=== PATIENT | female | born 1960 | race Caucasian/White ===

== ENCOUNTER 2022-05-25 02:53 | Inpatient (IN) | payer OTHER, SELFPAY ==
[2022-05-25] VITALS (10 sets, daily range): BP systolic 117–144; BP diastolic 68–90; PULSE 83–104; RESP 12–18; TEMP 36.4–37; O2SAT 94–98; BMI 35.6
--- NOTE | ~2022-05-25 | XR_ITS ---
EXAMINATION: XR CHEST CLINICAL INFORMATION: Nasogastric tube positioning. COMPARISON: Chest radiographs as detailed above. TECHNIQUE: Frontal view of the chest was obtained. FINDINGS: Support devices: Nasogastric tube with tip overlying the left upper quadrant and proximal gastric lumen. No significant abnormality is noted involving the heart, lungs, mediastinum, bony thorax or soft tissues. XR/XR chest 1V IMPRESSION: 1. Nasogastric tube appears in good position. 2. No acute cardiopulmonary process.
--- NOTE | ~2022-05-25 | CT_ITS ---
EXAMINATION: CT ABDOMEN AND PELVIS WITHOUT CONTRAST CLINICAL INFORMATION: Abdominal pain. Shortness of breath. COMPARISON: None TECHNIQUE: Multidetector volumetric imaging was performed from the superior aspect of the liver through the pubic symphysis. Sagittal and coronal reformatted images were obtained on the technologist's workstation. This CT examination was performed using dose optimization techniques as appropriate, variously including the following: *Automated exposure control *Adjustment of mA and/or kV according to patient size (this includes techniques or standardized protocols for targeted exams where dose is matched to indication/reason for exam; i.e. extremities or head) *Use of iterative reconstruction technique DLP: 636 mGy-cm FINDINGS: LUNG BASES: Clear. LIVER, GALLBLADDER, AND BILIARY TREE: A 1.8 cm diameter low density (9 Hounsfield unit) focus is present anteriorly within the right lobe of the liver and likely represents a benign, simple cyst requiring no additional imaging follow-up. Visualized. No biliary duct dilatation. PANCREAS: Unremarkable. SPLEEN: Unremarkable. ADRENAL GLANDS: Unremarkable. KIDNEYS AND URETERS: 1.8 cm diameter rounded low-density (-5 Hounsfield unit) focus within the interpolar segment of the right kidney consistent with a simple, benign renal cyst requiring no additional imaging follow-up. BLADDER: Unremarkable. GASTROINTESTINAL TRACT: Anastomotic sutures within the sigmoid colon. Moderate sigmoid diverticulosis. The appendix is not visualized. No pericecal inflammatory changes. Small bowel segments prominently within the left lower abdominal quadrant measure up to 4 cm in diameter. Fecal arise succus entericus is noted within a small bowel segment which partially herniates via a midline abdominal hernia (series 3 image 45). Findings are suspicious for small bowel obstruction related to the herniation. No free intraperitoneal fluid or gas collections noted. Moderate fluid distention of the stomach. ABDOMINAL WALL: A ventral midline incisional scar is noted. A left parasagittal herniation in the region of the incisional scar containing small bowel segments and may be a source of small bowel obstruction as noted above. Furthermore, nondilated small bowel segments are contained elsewhere within the herniation or a closely approximated secondary herniation with the herniation measuring approximately 7 cm in maximum lateral extent. Additionally, a right lower quadrant focal herniation containing omental fat is present (series 3 image 50). Soft tissue density measuring 3 cm in diameter with spiculated margins is present along the inferior margin of the midline incisional scar and may represent desmoplastic reaction. Small bowel anastomotic sutures are noted in the right lower abdominal quadrant. LYMPH NODES: Normal. VASCULAR: Mild scattered vascular calcifications. PELVIC VISCERA: Uterus is normal in appearance. No suspicious adnexal lesions. Curvilinear high density material is present in the right adnexal region. OSSEOUS STRUCTURES: Multilevel chronic spondylosis of the lumbar spine including degenerative grade 1 anterolisthesis L4-L5. CT/CT abdomen pelvis wo IV con IMPRESSION: *Acute small bowel obstruction. Dilated small bowel predominantly within the left lower quadrant is present. The obstruction may be secondary to small bowel herniating via a left parasagittal anterior abdominal wall hernia (series 3 image 46). Alternatively, the obstruction may be secondary to adhesions. Multiple intestinal anastomotic sutures are present. No free intraperitoneal gas or fluid collections. This critical result was discussed with Jim Hurst MD by telephone at 05/25/2022 5:56 AM and it was ascertained that the content and urgency of the report was understood at the time of direct communication.
--- OUTSIDE RECORDS SUMMARY | 2022-05-25 03:28 | XMS_ITS | Continuity of Care Document ---
:1960 Author Organization [facility] Address [address] [place] [address]- Care Team Providers Name Role Phone Not on Staff, PCP Primary Care Physician Unavailable En[place] [facility] [place] Date(s): 09/17/21 - 10/17/21 [facility] [address] [place] [address]- Attending Physician: Shanell Page Admitting Physician: AdmtrShanell Referring Physician: Admtr ArEdna Allergies, Adverse Reactions, Alerts Substance Reaction Severity Status sulfa drugs1 Active 1urticaria Medications metoprolol 50 mg oral tablet 50 mg, 1, tablet, By Mouth, 2 times a day, Refills 0, Maintenance, 12/13/18 16:37:41 EDT Start Date: 12/13/18 Status: OrderedNuLYTELY with Flavor Packs oral powder for reconstitution See Instructions, please follow instruction sheet, # 4,000 mL, 0 Refills, Maintenance, 10/09/20 10:29:00 EDT, [id number], Partial fill upon patient request if the prescription is for a scheduleII opioid drug., please follow instruction sheet,... Start Date: 10/09/20 Status: OrderedOmeprazole = 20 mg, By Mouth, Daily, 0 Refills, Maintenance, 12/13/18 16:37:21 EDT Start Date: 12/13/18 Status: Orderedondansetron 4 mg oral tablet 1 tablet = 4 mg, By Mouth, Every 8 hours, PRN Vomiting, # 12 tablet, 1 Refills, Maintenance, 05/12/20 19:45:00 EST, Tablet, [id number], Partial fill upon patient request, 156, cm, 12/26/19 8:33:00 EDT, Height, 90.6, kg, 01/11/19 11:54:00 EDT,... Start Date: 05/12/20 Status: Ordered Problem List Condition Effective Dates Status Health Status Informant Diverticulosis(Confirmed) Active GERD (gastroesophageal reflux Active disease)(Confirmed) Hypertension(Confirmed) Active IBS (irritable bowel Active syndrome)(Confirmed) Small bowel mass(Confirmed) Active Social History Social History Type Response Smoking Status Former smoker, quit more elizabeth n 30 days ago; Other: Quit about 30 yrs ago; entered on: 12/27/18 Sex
--- OUTSIDE RECORDS SUMMARY | 2022-05-25 03:28 | XMS_ITS ---
:1960 Author Care Team Providers Name Role Phone Prince Hearn Primary Care Provider Unavailable Allergies Code Code System Name Reaction Severity Status Onset NKDA ? Medications Name Status Start Date Stop Date ? ? amoxicillin 500 mg capsule Active ? Not a vailable Take 1 capsule every 8 hours by oral route for 7 days. codeine 10 mg-guaifenesin 100 mg/5 mL oral liquid Active ? Not available Take 10 mL every 4-6 hours by oral route as needed. omeprazole Active ? Not available Problems Name Status Onset Date Source ? Acute Sinusitis Active 05/16/2022 ? Cough Active 05/16/2022 ? Procedures None recorded. Results Lab Results None recorded. Past Encounters Encounter Date Diagnosis Provider 05/16/2022 Acute Sinusitis; Cough CHARLES HallC: [address] [place], [place] [phone], Ph. Social History Tobacco Smoking Status Never Smoker Vaccine List None recorded. Plan of Care Reminders Provider Appointments None recorded. ? ? Lab None recorded. ? ? Referral None recorded. ? ? Procedures None recorded. ? ? Surgeries None recorded. ? ? Imaging None recorded. ? ? Vitals Blood Pressure 147/92 mm[Hg]
--- OUTSIDE RECORDS SUMMARY | 2022-05-25 03:28 | XMS_ITS | Continuity of Care Document ---
:1960 Author Organization [facility] Address [address] [place] [address]- Care Team Providers Name Role Phone Su Love MD Primary Care Physician [place] [facility] [place] - 07/28/[address] [address]- [facility] Attending Physician: Su Love MD Admitting Physician: Su Love MD Referring Physician: Su Love MD Allergies, Adverse Reactions, Alerts Substance Reaction Severity Status sulfa drugs1 Active 1urticaria Medications metoprolol 50 mg oral tablet 50 mg, 1, tablet, By Mouth, 2 times a day, Refills 0, Maintenance, 12/13/18 16:37:41 EDT Start Date: 12/13/18 Status: OrderedOmeprazole = 20 mg, By Mouth, Daily, 0 Refills, Maintenance, 12/13/18 16:37:21 EDT Start Date: 12/13/18 Status: Ordered Problem List Condition Effective Dates Status Health Status Informant Diverticulosis(Confirmed) Active GERD (gastroesophageal reflux Active disease)(Confirmed) Hypertension(Confirmed) Active IBS (irritable bowel Active syndrome)(Confirmed) Small bowel mass(Confirmed) Active Social History Social History Type Response Smoking Status Former smoker, quit more elizabeth n 30 days ago; Other: Quit about 30 yrs ago; entered on: 12/27/18 Sex
--- OUTSIDE RECORDS SUMMARY | 2022-05-25 03:28 | XMS_ITS | Continuity of Care Document ---
:1960 Author Organization [facility] Address [address] [place] [address]- Care Team Providers Name Role Phone Not on Staff, PCP Primary Care Physician Unavailable En[place] [facility] [place](s): 04/16/21 - 05/16/21 [facility] [address] [place] [address]- Attending Physician: Shanell Page Admitting Physician: Shanell Page Referring Physician: Shanell Page Allergies, Adverse Reactions, Alerts Substance Reaction Severity [...]
--- OUTSIDE RECORDS SUMMARY | 2022-05-25 03:28 | XMS_ITS | Encounter Summary ---
:1960 Author Reason for Visit COVID-19 symptoms cough, congestion, sinus pressure x2 wee ks Assessment and Plan 1. Acute sinusitis ? sinusitis: care instructions ? amoxicillin 500 mg capsule ? sinusitis: care instructions 2. Cough ? cough: care instructions ? cough: care instructions ? codeine 10 mg-guaifenesin 100 mg/5 mL oral liquid Discussion Note This is a 61-year-old female who presen ts to the emergency department for evaluation of cough and sinus pain for several weeks, not improving on its own. Patient is afebrile. Vital signs are sta ble. Physical exam as above. She has moderate tenderness to frontal sinuses bilaterally. Her lungs are clear to auscultation bilaterally. Will give prescription for amoxicillin a s her symptoms are prolonged, not improving on their own. Patient also requesting cough medicine w ronda barbosaine. She has taken this in the past and has been helpful. Discussed that she should not drive or drink alcohol while taking this medication. Symptomatic care discussed. Reviewed patient?s medical history and c o-morbidities addressed. Plan of Care Reminders Provider Appointments None recorded. ? ? Lab None recorded. ? ? Referral None recorded. ? ? Procedures None recorded. ? ? Surgeries None recorded. ? ? Imaging None recorded. ? ? Medications Name Start Date ? ? amoxicillin 500 mg capsule ? Take 1 capsule every 8 hours by oral route for 7 days . codeine 10 mg-guaifenesin 100 mg/5 mL oral liquid ? Take 10 mL every 4-6 hours by oral route as needed. omeprazole ? Medications Administered None recorded. Vitals Blood Pressure 147/92 mm[Hg] Results Lab Results None recorded. Allergies Code Code System Name Reaction Severity Onset NKDA ? ? ? Problems Name Status Onset Date Source ? Acute Sinusitis Active 05/16/2022 ? Cough Active 05/16/2022 ? Procedures None recorded. Vaccine List None recorded. Social History Tobacco Smoking Status Never Smoker What was the date of your most recent tobacco screening? What is your level of alcohol consumption? None Do you or have you ever used any other forms of tobacco or n icotine? N Has tobacco cessation counseling been provided? N Do you use any illicit or recreational drugs? N Functional Status Unknown. Past Encounters Encounter Date Diagnosis Provider 05/16/2022 Acute Sinusitis; Cough CHARLES HallC: [address] [place], [place] [phone], Ph. History of Present Illness ? Upper Respiratory Symptoms Reported By: Patient Upper Respiratory Symptoms: Duration: ; Onset 2 weeks ago. Context: no sick contacts, no foreign travel. Associate d Symptoms: no shortness of breath, no wheezing, green s putum, fever, sore throat Notes: <div>sinus pain for 2 weeks< /div> ? COVID-19 Symptoms October 2019 Reported By: Patient Review of Systems: ROS as noted in the HPI Review of Systems ? Comprehensive Adult Problem ROS Reported By: Patient Constitutional: Constitutional: no fever, fa tigue Eyes: Eyes: no eye pain, no blurry vision ENMT: ENMT: no ear pain, no sore t hroat, sinus pressure, congestion Cardiovascular: Cardiovascular: no chest prosper n Respiratory: Respiratory: no wheezing, no chest tightness, no pain with respiration, cough Gastrointestinal: GI: no difficulty swallowing , no nausea, no vomiting, no diarrhea Musculoskeletal: Musculoskeletal: no soft tis mark swelling Skin: Skin: no pain Neurological symptoms: Neuro: no numbness, no weakn ess, no tingling, no burning, no shooting pain Allergic/Immunologic: Allergy/Immunologic: no runn y nose, sneezing Physical Exam ? COVID-19 Exam Reported By: Patient General Appearance: General Appearance normal ap pearance, no acute distress ENMT: Ears: canals clear, TM landm arks clear. Nose: nares patent, frontal sinus tenderness. Or al Cavity: moist mucous membranes, normal dentition. Pharynx: n o exudates, no tenderness, tonsils not enlarged, erythema Lymph Nodes: Lymph Nodes no LAD Lungs: Auscultation clear to auscul tation, no rales/crackles, no rhonchi, no wheezing Cardiovascular: Rate And Rhythm RRR
--- OUTSIDE RECORDS SUMMARY | 2022-05-25 03:28 | XMS_ITS | Continuity of Care Document ---
:1960 Author Organization [facility] Address [address] [place] [address]- Care Team Providers Name Role Phone Su Love MD Primary Care Physician Encounter [facility] [place] Date(s): 12/26/19 - 01/25/20 [facility] [address] [place] [address]- [facility] Attending Physician: Shanell Page Admitting Physician: Shanell [...]
--- OUTSIDE RECORDS SUMMARY | 2022-05-25 03:29 | XMS_ITS | Continuity of Care Document ---
:1960 Author Organization [facility] Address [address] [place] [address]- Care Team Providers Name Role Phone Not on Staff, PCP Primary Care Physician Unavailable Encounter [facility] Date(s): 12/22/20 - 01/21/21 [facility] [address] [place] [address] Allergies, Adverse Reactions, Alerts Substance Reaction Severity [...]
--- OUTSIDE RECORDS SUMMARY | 2022-05-25 03:29 | XMS_ITS | Continuity of Care Document ---
:1960 Author Organization [facility] Address [address] [place] [address]- Care Team Providers Name Role Phone Ivan GALE, Su Jean Primary Care Physician Encounter [facility] [place] Date(s): 02/10/20 - 03/11/20 [facility] [address] [place] [address]- [facility] Allergies, Adverse Reactions, Alerts Substance Reaction Severity [...]
--- OUTSIDE RECORDS SUMMARY | 2022-05-25 03:29 | XMS_ITS | Continuity of Care Document ---
:1960 Author Organization [facility] Address [address] [place] [address]- Care Team Providers Name Role Phone Not on Staff, PCP Primary Care Physician Unavailable Encounter [facility] [place] Date(s): 01/05/21 - 02/04/21 [facility] [address] [place] [address]- [place] Allergies, Adverse Reactions, Alerts Substance Reaction Severity [...]
--- OUTSIDE RECORDS SUMMARY | 2022-05-25 03:29 | XMS_ITS ---
:1960 Author Organization [facility] Address [address] [place] [address] Care Team Providers Name Role Phone Ean Smith Unavailable Unavailable PROBLEMS Type Condition ICD9-CM [id number] Onset Condition SNOMED Cod e Code Code Dates Status Problem Gastroesophageal K21.9 Active 266 353404 reflux disease without esophagitis Problem Constipation, K59.00 Active 572210 08 unspecified constipation type ALLERGIES No Known Allergies ENCOUNTERS Encounter Location Date Diagnosis [address] Feb, [facility] [address] [place] [address] Feb, Constipa tion, unspecified [facility] [address] [place], [place] constipati on type K59.00 and [phone] Gastroesophageal reflux disease without esophagitis K21.9 [facility] [place] Outpatient [address] [facility] Mar, ALEX Jarquin [phone] [facility] [place] ER [address] [facility] October, ALEX Jarquin [phone] IMMUNIZATIONS Vaccine Route Administration Date Status Influenza Unknown Mar 03, 2021 Administered SOCIAL HISTORY Qualifiers Date Never Smoker REASON FOR REFERRAL FUNCTIONAL STATUS PLAN OF CARE Activity Details Follow Up prn Reason: VITAL SIGNS Weight 203 lbs 2021-03-03 Height 61 in 2021-03-03 BMI 38.35 kg/m2 2021-03-03 Temperature 98.6 degrees Fahrenheit 2021-03-03 Blood pressure systolic 000 mm Hg 2021-03-03 Blood pressure diastolic 00 mm Hg 2021-03-03 MEDICATIONS Medication Instructions Dosage Frequency Start End Duration Statu s Date Date Hyoscyamine Orally every 4 1 tablet as 4h A ctive Sulfate 0.125 hrs needed MG Metoprolol Orally Once a 1 tablet 24h 30 day(s) Acti ve Succinate ER 50 day MG Losartan Orally Once a 1 tablet 24h 30 day(s) Active Potassium 25 MG day Omeprazole 20 Orally Once a 1 capsule 24h Ac tive MG day 30 minutes before morning meal Metoprolol Orally Once a 1 capsule 24h 30 day(s) Act dave Succinate 25 MG day PROCEDURES Procedure Date Ordered Result Body Site PATIENT NOT ELIG D/T ACTIVE DX HTN Mar 03, 2021 TOBACCO NON-USER Mar 03, 2021 DOC MEDS VERIFIED W/PT OR RE Mar 03, 2021 COLORECTAL CA SCREEN DOC REV Mar 03, 2021 RESULTS No Results REASON FOR VISIT colon recall, Patient presents today for constipation Insurance Providers [facility] Health Member Patient Patient Patient Patient Patient Subscriber Subscriber Subscriber Group Insurance Plan Plan Plan Plan ID Relationship Address Phone Name Date of ID Name Date of No Type Insurance Insurance Insurance Coverage to Subscriber Address Phone Name Dates [employer] [phone] [employer] [facility] [id number] [facility] [id number] [id number]
--- OUTSIDE RECORDS SUMMARY | 2022-05-25 03:29 | XMS_ITS | Continuity of Care Document ---
:1960 Author Organization [facility] Address [address] [place] [address]- Care Team Providers Name Role Phone Su Love MD Primary Care Physician Encounter [id number] Date(s): 08/03/19 - 01/29/20 [facility] [address] [place] [address] [facility] Attending Physician: Johnna Boo MD Admitting Physician: Johnna Boo MD Referring Physician: Su Love MD Allergies, [...]
--- OUTSIDE RECORDS SUMMARY | 2022-05-25 03:29 | XMS_ITS | Continuity of Care Document ---
:1960 Author Organization [facility] Address [address], [address] [place] [address]- Care Team Providers Name Role Phone Su Love MD Primary Care Physician Encounter 07/26/19 - 08/02/19 [facility] [address], [address] [place] [address]- [facility] Attending Physician: Su Love MD Admitting [...]
--- OUTSIDE RECORDS SUMMARY | 2022-05-25 03:29 | XMS_ITS | Continuity of Care Document ---
:1960 Author Organization [facility] Address [address] [place] [address]- Care Team Providers Name Role Phone Not on Staff, PCP Primary Care Physician Unavailable Encounter [facility] [place] Date(s): 10/09/20 - 01/21/[address] [address] Attending Physician: Ema GALE, Johnna Admitting Physician: Ema GALE, Johnna Allergies, Adverse Reactions, Alerts Substance Reaction Severity [...]
--- OUTSIDE RECORDS SUMMARY | 2022-05-25 03:29 | XMS_ITS | Continuity of Care Document ---
:1960 Author Organization [facility] Address [address] [place] [address]- Care Team Providers Name Role Phone Not on Staff, PCP Primary Care Physician Unavailable Encounter [facility] Date(s): 09/11/21 - 10/17/21 [facility] [address] [place] [address]- Attending Physician: Hood Roberts MD Admitting Physician: Hood Roberts MD Referring Physician: Not on Staff, Referring MD Allergies, Adverse Reactions, Alerts Substance Reaction [...]
--- OUTSIDE RECORDS SUMMARY | 2022-05-25 03:29 | XMS_ITS | Continuity of Care Document ---
:1960 Author Organization [facility] Address [address] [place] [address]- Care Team Providers Name Role Phone Malinda Chatman MD Primary Care Physician [place] [facility] [place] - 01/04/[address] [address]- Discharge Disposition: A-D/C Walkout Attending Physician: Rodrick Christian MD Admitting Physician: Rodrick Christian MD Referring Physician: Not on Staff, Referring [...] bowel Active syndrome)(Confirmed) Small bowel mass(Confirmed) Active Vital Signs Most recent to oldest [Reference Range]: 1 2 Height 155 cm (01/04/21 5:30 PM) Weight 93.4 kg (01/04/21 5:30 PM) Oxygen Saturation [94-100 %] 100 % 99 % (01/04/21 5:30 PM) (01/04/21 5:17 PM) Pulse Rate [55-90 bpm] 99 bpm 115 bpm *H* *H* (01/04/21 5:30 PM) (01/04/21 5:17 PM) Body Mass Index [18.5-24.99] 38.88 *>HHI* (01/04/21 5:30 PM) Blood Pressure [90-138/55-84 mm Hg] 142/92 mm Hg *H* (01/04/21 5:30 PM) Respiratory Rate [16-30 br/min] 19 br/min 18 br/mi n (01/04/21 5:30 PM) (01/04/21 5:17 PM) Temperature [96.8-100.4 DegF] 98.5 DegF (01/04/21 5:30 PM) Mode of Delivery (Oxygen) Room air Room air (01/04/21 5:30 PM) (01/04/21 5:17 PM) Blood pressure sites Arm, right (01/04/21 5:30 PM) Temperature Route Oral (01/04/21 5:30 PM) Dry Weight 93.4 kg (01/04/21 5:30 PM) Weight Obtained Via Standing scale (01/04/21 5:30 PM) Dry Weight Obtained Via Standing scale (01/04/21 5:30 PM) Social History Social History Type Response Smoking Status Former smoker, quit more elizabeth n 30 days ago; Other: Quit about 30 yrs ago; entered on: 12/27/18 Sex
--- OUTSIDE RECORDS SUMMARY | 2022-05-25 03:29 | XMS_ITS | Continuity of Care Document ---
:1960 Author Organization [facility] Address [address] [place] [address]- Care Team Providers Name Role Phone Ivan GALE, Su Jean Primary Care Physician Encounter [facility] [place] Date(s): 12/27/19 - 01/26/20 [facility] [address] [place] [address]- [facility] Attending Physician: Shanell Page Admitting Physician: [...]
--- OUTSIDE RECORDS SUMMARY | 2022-05-25 03:29 | XMS_ITS | Continuity of Care Document ---
:1960 Author Organization [facility] Address [address] [place] [address]- Care Team Providers Name Role Phone Compa GALE, Malinda Leos Primary Care Physician Encounter [facility] [place] Date(s): 12/09/20 - 01/08/21 [facility] [address] [place] [address] Allergies, Adverse Reactions, Alerts Substance [...]
--- OUTSIDE RECORDS SUMMARY | 2022-05-25 03:29 | XMS_ITS | Continuity of Care Document ---
:1960 Author Organization [facility] Address [address] [place] [address]- Care Team Providers Name Role Phone Su Love MD Primary Care Physician Encounter [facility] [place] Date(s): 12/27/19 - 01/03/20 [facility] [address] [place] [address]- [facility] Encounter Diagnosis Sinus congestion (Discharge Diagnosis) - 12/27/19 Exposure to COVID-19 virus (Discharge Diagnosis) - 12/27/19 Attending Physician: Rubén Luong MD Referring Physician: Su Love MD Allergies, [...] bowel Active syndrome)(Confirmed) Small bowel mass(Confirmed) Active Diagnosis Diagnosis Type Effective Dates Health Clinical Infor mant Status Service Sinus congestion Discharge 12/27/19 Diagnosis Exposure to Discharge 12/27/19 COVID-19 virus Diagnosis Social History Social History Type Response Smoking Status Former smoker, quit more elizabeth n 30 days ago; Other: Quit about 30 yrs ago; entered on: 12/27/18 Sex
--- OUTSIDE RECORDS SUMMARY | 2022-05-25 03:29 | XMS_ITS | Continuity of Care Document ---
:1960 Author Organization [facility] Address [address] [place] [address]- Care Team Providers Name Role Phone Ivan GALE, Su Jean Primary Care Physician En[place] [facility] [place](s): 07/29/19 - 07/29/[address] [address]- [facility] Attending Physician: Natasha Eastman NP Allergies, Adverse Reactions, Alerts Substance Reaction Severity [...]
--- OUTSIDE RECORDS SUMMARY | 2022-05-25 03:29 | XMS_ITS | Continuity of Care Document ---
:1960 Author Organization [facility] Address [address] [place], [place] [address]- Care Team Providers Name Role Phone Not on Staff, PCP Primary Care Physician Unavailable Encounter [facility] [place] Date(s): 01/16/21 - 05/16/21 [facility] [address] [place], [place] [address]- Attending Physician: Johnna Boo MD Admitting Physician: Johnna Boo MD Referring Physician: Not on Staff, Referring [...]
--- NOTE | 2022-05-25 03:47 | PC.NURSE ---
Pt's V/S are stable, pt is experiencing abd pain on her RUQ 8/10. Pt has been having N/V and vomiting bile. Pt has hx of ileostomy and bowel obstruction and she says she feels the same s/s. Pt has hypoactive bowel sound throughout her upper and lower quadrants. Pt is afibrile, no other s/s reported.
--- NOTE | 2022-05-25 04:11 | ECG_ITS ---
Test Reason : ABD PAIN Blood Pressure : / mmHG Vent. Rate : 092 BPM Atrial Rate : 092 BPM P-R Int : 132 ms QRS Dur : 086 ms QT Int : 354 ms P-R-T Axes : 052 025 042 degrees QTc Int : 437 ms Normal sinus rhythm Normal ECG When compared with ECG of 30-APR-2008 15:11, No significant change was found Referred By: Jim Hurst Electronically Signed By:ELLE BUTCHER MD
[2022-05-25 04:30] LABS: MANUAL DIFF FLAG NO
[2022-05-25 04:33] LABS: Basophils Percent Auto 0.2 % (0-2); Eosinophils Percent Auto 0.3 % (0-4); Hematocrit 42.6 % (37.0-47.0); Hemoglobin 14.5 g/dl (12.0-16.0); Imm Gran Abs Auto 0.03 X10*3/uL (0.00-0.03); Imm Gran Pct Auto 0.3 % (0.0-0.4); Lymphocytes Absolute Auto 1.1 X10*3/uL (1.2-4.9); Lymphocytes Percent Auto 10.8 % (20-40); Mean Corpuscular Hemoglobin 28.9 pg (27.0-33.0); Mean Corpuscular Volume 84.9 fL (80.0-98.0); Monocytes Absolute Auto 0.6 X10*3/uL (0.1-1.2); Monocytes Percent Auto 5.8 % (2-11); Neutrophils Absolute Auto 8.4 x10*3/uL (2.0-8.3); Neutrophils Percent Auto 82.6 % (45-73); Platelet Count 359 X10*3/uL (160-400); Red Blood Count 5.02 X10*6/uL (4.20-5.50); Red Cell Distribution Width 13.6 % (11.0-16.0); White Blood Count 10.2 X10*3/uL (4.8-10.8)
[2022-05-25] MEDS: Morphine Sulfate 2 MG/ML CARTRIDGE 1 MG IVPUSH ×3 (04:35→17:59)
[2022-05-25] MEDS: 0.9 % Sodium Chloride 1,000 ML 999 ML IV (04:36)
[2022-05-25] MEDS: ondansetron HCL 4 MG/2 ML VIAL IVPUSH ×2 (04:36→10:11)
[2022-05-25] MEDS: Famotidine/PF 20 MG/2 ML VIAL IVPUSH (04:36)
[2022-05-25 04:53] LABS: Alanine Aminotransferase 62 U/L (0-31); Albumin Level 4.1 g/dL (3.5-5.0); Alkaline Phosphatase 95 U/L (39-117); Anion Gap 16 (12-20); Aspartate Amino Transferase 22 U/L (5-31); Bilirubin Direct 0.2 mg/dL (0.0-0.5); Blood Urea Nitrogen 13 mg/dL (9-16); Carbon Dioxide 26 mmol/L (22-29); Chloride 103 mmol/L (96-108); Creatinine Clr Calc Pharmacy 75.3; Estimated Glomerular Filt Rate > 60; Glucose Random 135 mg/dL (60-115); Lipase 24 U/L (8-78); Potassium 4.6 mmol/L (3.3-5.1); Sodium 140 mmol/L (135-145); Total Protein 7.1 g/dL (6.5-8.0)
[2022-05-25 04:59] LABS: Troponin-I High Sensitivity < 3.5 ng/L (<3.5-17.0)
--- NOTE | 2022-05-25 06:39 | PC.NURSE ---
Call out to Dr.Jennifer Carmen Art from [facility] [phone] @[phone]
--- NOTE | 2022-05-25 06:50 | PC.NURSE ---
Call out to [facility] @[phone]
--- NOTE | 2022-05-25 07:14 | ED_ITS ---
HPI - Abdominal Pain General Chief Complaint: Abdominal Pain Stated Complaint: Abd pain/Vomiting blood Time Seen by Provider: 05/25/22 03:47 Source: patient and family (Daughter) Mode of arrival: ambulatory Limitations: no limitations History of Present Illness HPI narrative: 61-year-old female presented for evaluation of abdominal pain. Abdominal pain started since yesterday after eating lunch pain is localized to the left abdominal area described as constant severe 10/10 crampy pain, pain was aggravated by food nothing relieved the pain, associated with nausea, patient had a normal bowel movement this morning and passing gas. Patient had a history of small-bowel obstruction in the past and multiple abdominal surgery with adhesion require multiple surgery for Luna section at [facility]. No chest pain, no fever, no chills. Related Data Allergies Allergy/AdvReac Type Severity Reaction Status Date / Time Sulfa (Sulfonamide Allergy Unknown HIVES Verified 05/25/22 03:10 Antibiotics) [SULFA (SULFONAMIDE ANTIBIOTICS)] Septra Allergy Unknown Hives Uncoded 05/25/22 03:10 Sulfa Allergy Unknown Hives Uncoded 05/25/22 03:10 Review of Systems Review of Systems All other systems are reviewed and are negative Constitutional: Reports as per HPI and Reports no additional constitutional complaints Eyes: Reports as per HPI and Reports no additional eye complaints Reports system reviewed and no additional complaints, except as documented Cardiovascular: Reports as per HPI and Reports no additional cardiovascular complaints Respiratory: Reports as per HPI and Reports no additional respiratory complaints Gastrointestinal: Reports as per HPI and Reports no additional gastrointestinal complaints Genitourinary: Reports no additional female genitourinary complaints Musculoskeletal: Reports no additional musculoskeletal complaints Skin/Breast: Reports system reviewed and no additional complaints, except as docu Psychiatric: Reports no additional psychiatric complaints Endocrine: Reports no additional endocrine complaints Hematologic/Lymphatic: Reports no additional hematologic/lymphatic complaints Allergic/Immunologic: Reports no additional allergic/immunologic complaints Reports system reviewed and no additional complaints, except as documented and Reports Abnormal speech present [facility] Past Medical History Medical History Hypertension Irritable bowel Social History Social History Alcohol intake: current Alcohol intake frequency: a few times a week Alcohol type: wine Smoked in Last 30 Days: No Use of substances other than those prescribed or required for medical reasons: No Advance Directives: No Advance Directives Information Provided: No Patient : No Physical Exam ED Vital Signs: Vital Signs - 24 hr 05/25/22 03:05 05/25/22 03:36 05/25/22 04:35 Temperature 97.6 F 98.6 F Pulse Rate 96 99 Respiratory Rate 18 18 16 Blood Pressure 117/90 H 144/85 H Pulse Oximetry 98 98 Oxygen Delivery Method Room Air Room Air 05/25/22 07:06 Temperature 98.4 F Pulse Rate 96 Respiratory Rate 12 Blood Pressure 136/81 Pulse Oximetry 96 Oxygen Delivery Method Room Air BMI result Body Mass Index 35.6 Vital signs have been reviewed as appeared to be correct. Blood pressure normal. Heart rate normal. Respiration rate normal. Temperature normal. Oxygen saturation normal. Appearance: Alert. Oriented X3. No acute distress. Head: Normal external exam. Normocephalic. Atraumatic. No Burnette signs noted. No raccoon eyes noted Eyes: PERRLA. EOMI. Conjunctiva and sclera normal. Eyelids normal. ENT: TM's Normal. Pharynx normal. Uvula midline. Moist mucous membranes. No trismus noted. No drooling noted. No muffled voice noted. Neck: Normal inspection. Neck supple. FROM. No adenopathy. Thyroid Normal. No meningeal signs. No neck mass noted. CVS: Normal heart rate and rhythm. Heart sound normal. No murmurs noted. Pulses normal throughout. Respiratory: No respiratory distress. Painless inspiration. Breath sounds normal. No wheezes/rales/rhonchi noted. Chest nontender. No accessory muscle usage noted or decreased air movement noted. Abdomen: Soft, left abdominal tenderness no rebound tenderness, no guarding. Bowel sounds normal in all 4 quadrants. No distention noted. No organomegaly noted. No visible injury noted. Back: No CVA tenderness. Full range of motion noted. Skin: Skin warm and dry. Normal skin color. Normal skin turgor. No rashes/lesions/lacerations noted. Extremities: No lower extremity edema. Extremities exhibit normal range of motion. Extremities nontender. Neuro: Oriented X 3. Cranial nerve exam: II-XII are grossly intact No motor deficit. No sensory deficit. Reflexes normal. Course Course Course Narrative: 61-year-old female with multiple abdominal surgery and frequent small bowel obstruction at [facility] by Dr. Art (surgeon) I discussed the case with as per patient's request patient was not accepted to the hospital because the hospital was closed for transfer, then the case was discussed with Dr. Reynolds who will evaluate the patient in the morning. Will insert NG tube/IV hydration/pain medication as needed. Medical Decision Making Medical Decision Making Differential Diagnoses: Differential diagnosis Differential Diagnosis: The differential diagnosis associated with the patient?s presentation includes: Small-bowel obstruction/gastritis/strangulated hernia causing obstruction. Consideration of admission/observation: Consideration of Admission/Observation Escalation of care admission/observation considered: Escalation of care including admission/observation considered Discussion of management with other physician/healthcare provider/other source (e.g., hospitalist, program consultant, behavioral health): Discussion w/other physician/healthcare provider ( Gail) Management of the patient was discussed with: Child Development Assistant (Surgeon) My interpretation is Lab Attestation: I reviewed the patient's lab results. Discussion of test interpretation with radiology: Discussion of test interpretation with radiology Discussed with radiology regarding test interpretation. Medications Administered Discontinued Medications Generic Name Dose Route Start Last Admin Trade Name Freq PRN Reason Stop Dose Admin Famotidine 20 mg 05/25/22 04:24 05/25/22 04:36 Famotidine/Pf 20 Mg/2 Ml Vial IVPUSH 05/25/22 04:25 20 mg ONCE ONE Administration Sodium Chloride 1,000 mls @ 999 mls/hr 05/25/22 04:09 05/25/22 04:36 Ns IV 05/25/22 05:09 999 mls/hr .Q1H1M ONE Administration Morphine Sulfate 1 mg 05/25/22 04:23 05/25/22 04:35 Morphine Sulfate 2 Mg/Ml Cartridge IVPUSH 05/25/22 04:24 1 mg ONCE ONE Administration Protocol Ondansetron HCl 4 mg 05/25/22 04:23 05/25/22 04:36 Ondansetron Hcl 4 Mg/2 Ml Vial IVPUSH 05/25/22 04:24 4 mg ONCE ONE Administration Discharge Plan Discharge Clinical Impression: Small bowel obstruction Patient Disposition: Admitted As Inpatient
[2022-05-25 07:25] LABS: Appearance Urine Cloudy; Color Urine Dark Yellow; Glucose Urine UA Negative (Negative); Leukocyte Esterase Urine Negative (Negative); Nitrite Urine Negative (Negative); PH >= 9.0 (5.0-9.0); Specific Gravity - Urine 1.025 (1.005-1.025); UMIC TRIGGER UACC YES; Urine Blood Negative (Negative); Urine Ketones 15 mg/dL (Negative); Urine Protein 30 (1+) mg/dL (Neg-Trace)
[2022-05-25 07:27] LABS: Bacteria Urine None Seen (None Seen); Hyaline Casts Urine 0-2 /LPF (0-2); RBC Urine 0-2 /HPF (0-2); Squamous Epithelial Cell Urine 0-2 /HPF (0-2); WBC Urine 0-5 /HPF (0-5)
--- NOTE | 2022-05-25 08:00 | PC.NURSE ---
patient a/ox4 . perrlla . heart rate regular at 100 beats per min . breathing even and unlabored . lungs clear throughout . skin pink warm and dry . abdomen soft , tender to touch rebound tenderness noted on left side . patient reports pasing gas and having loose bowel movements . bowel sounds noted only on right side of abdomen . patient aware of plan of care .
[2022-05-25 08:23] LABS: Lactic Acid 0.8 mmol/L (0.5-2.0)
--- NOTE | 2022-05-25 08:25 | PM.CNGS ---
History of Present Illness Consult details Consult date: 05/25/22 Reason for consult: abdominal pain Narrative: The patient is a 61-year-old woman who is accompanied by her daughter. She is stated that her daughter is her caregiver and requested she be present with to help facilitate today's interview since the patient has a rather complex medical history. Patient notes that she has a history of carcinoid involving her small bowel mesentery and small bowel that she believes was operated on in [place]. She also notes that at another hospital, last year she underwent a colonoscopy and had a sigmoid perforation that required operative repair and a diverting ileostomy that was reversed in closed earlier this year. She notes that she has been told she has an incisional hernia and that they are following at and that no formal plan is in place regard in its repair. She and her daughter confirmed that yesterday she started to developed crampy abdominal pain associated with vomiting and left upper quadrant pain. She was evaluated in the emergency department and CT demonstrate the hernia with a possible transition point in the hernia. The patient denies any pain at her hernia and reports that she is passing gas and had a normal bowel movement yesterday. She continues to endorse left upper quadrant pain that is severe enough that she does not feel that she can be sent home. Review of Systems Review of Systems: Yes all other systems are reviewed and are negative Constitutional: Constitutional: Reports as per [facility] Past Medical History Medical History Hypertension Irritable bowel Social History Social History Alcohol intake: current Alcohol intake frequency: a few times a week Alcohol type: wine Smoked in Last 30 Days: No Use of substances other than those prescribed or required for medical reasons: No Advance Directives: No Advance Directives Information Provided: No Patient : No Meds Allergies Allergy/AdvReac Type Severity Reaction Status Date / Time Sulfa (Sulfonamide Allergy Unknown HIVES Verified 05/25/22 03:10 Antibiotics) [SULFA (SULFONAMIDE ANTIBIOTICS)] Active Medications: Current Medications Pharmacy Consult (Consult Rx Perform Med Rec) 1 each MISCELLANE ONCE PRN PRN Reason: Consult order Home Medications Medication Instructions Recorded Confirmed Last Taken Type albuterol sulfate 90 mcg/actuation 1 puff inhalation QID PRN Wheezing 05/25/22 05/25/22 Unknown History aerosol inhaler metoprolol succinate 25 mg 1 tab PO DAILY 05/25/22 05/25/22 Unknown History tablet,extended release 24 hr metoprolol succinate 50 mg 1 tab PO DAILY 05/25/22 05/25/22 Unknown History tablet,extended release 24 hr omeprazole 20 mg capsule,delayed 1 cap PO DAILY 05/25/22 05/25/22 Unknown History release Physical Exam Vital Signs: Vital Signs: Last Vital Signs Temp 98.4 F 05/25/22 07:06 Pulse 96 05/25/22 07:06 Resp 12 05/25/22 07:06 BP 136/81 05/25/22 07:06 Pulse Ox 96 05/25/22 07:06 O2 Del Method 05/25/22 07:06 BMI result Body Mass Index 35.6 The patient is non-toxic & in good spirits NC/AT, PERRLA, EOMI Mood, affect & judgment all appear appropriate Sclera anicteric conjunctiva pink and moist Oropharynx is clear with no aphthous ulcers, Mallampati class 4, mucous membranes moist Neck is supple with no masses, adenopathy or bruits Heart is regular, normal S1-S2 no rubs or murmurs Lungs are clear and equal anteriorly with no audible wheezing, rubs or dullness to percussion Abdomen is overweight with no demonstrable hernias. No HSM, rebound, rigidity, guarding, masses or bruits are present. Rectal exam is deferred Skin has good turgor and is free of rashes Extremities free of cyanosis clubbing edema Results Labs Result diagrams: 05/25/22 04:26 05/25/22 04:26 Labs: Abnormal lab results 05/25/22 05/25/22 05/25/22 Range/Units 04:26 04:26 07:19 MPV 9.0 L (9.4-12.3) fL Neut % (Auto) 82.6 H (45-73) % Lymph % (Auto) 10.8 L (20-40) % Lymph # (Auto) 1.1 L (1.2-4.9) X10*3/uL Absolute Neuts (auto) 8.4 H (2.0-8.3) x10*3/uL Random Glucose 135 H (60-115) mg/dL ALT 62 H (0-31) U/L Urine Protein 30 (1+) H (Neg-Trace) mg/dL Short CBC 05/25/22 Range/Units 04:26 WBC 10.2 (4.8-10.8) X10*3/uL Hgb 14.5 (12.0-16.0) g/dl Hct 42.6 (37.0-47.0) % Plt Count 359 (160-400) X10*3/uL BMP 05/25/22 04:26 Sodium 140 Potassium 4.6 Chloride 103 Carbon Dioxide 26 BUN 13 Creatinine 0.76 Calcium 10.0 Liver Function 05/25/22 Range/Units 04:26 Total Bilirubin 1.0 (0.0-1.0) mg/dL Direct Bilirubin 0.2 (0.0-0.5) mg/dL AST 22 (5-31) U/L ALT 62 H (0-31) U/L Alkaline Phosphatase 95 (39-117) U/L Albumin 4.1 (3.5-5.0) g/dL Urine 05/25/22 Range/Units 07:19 Urine Color Dark Yellow Urine Appearance Cloudy Urine pH >= 9.0 (5.0-9.0) Ur Specific [place] 1.025 (1.005-1.025) Urine Protein 30 (1+) H (Neg-Trace) mg/dL Urine Glucose (UA) Negative (Negative) mg/dL All other labs normal. Lactic acid is normal at 0.[address] scan report/results: report reviewed and image reviewed CT scan - pelvis: report reviewed and image reviewed Assessment and Plan (1) Partial small bowel obstruction: Status: Acute (2) H/O malignant carcinoid tumor of small intestine: Status: Acute (3) Morbid (severe) obesity due to excess calories: Status: Acute (4) History of closure of ileostomy: Status: Acute Plan While awaiting the lactic acid, I re-examined the patient and her incisional hernia continues to reduce but she does report it is tender. More importantly, the patient reports an interval bowel movement and is continuing to pass gas. The patient has agreed to a nasogastric tube according to the ER staff in an attempt to try to avoid an operation. Given the ongoing flatus and bowel movement, I suspect the patient will not require surgery, but I will continue to follow. Please call me with surgical questions. Trend labs, NPO with IV fluid and call me with questions Procedures Date of Service Date of Service: 05/25/22
--- NOTE | 2022-05-25 08:42 | PHA.MEDREC ---
Pharmacy Consult ? Medication Reconciliation Pharmacy has completed the medication reconciliation.
[2022-05-25] MEDS: Midazolam HCl/PF 2 MG/2 ML VIAL IVPUSH (08:48)
[2022-05-25] MEDS: Lidocaine HCl 4 % MPF w/MADgic 5 ML AMPUL 1 APPL TOPICAL (08:52)
[2022-05-25 08:58] LABS: Influenza A PCR NEGATIVE (Negative); Influenza B PCR NEGATIVE (Negative); Resp Syncy Virus RNA Qual PCR NEGATIVE (Negative); SARS COV2 PCR INHOUSE NEGATIVE (Negative)
--- NOTE | 2022-05-25 09:00 | PC.NURSE ---
adminestered 2mg versed as ordered by provider for anxiety related to procedure . patient placed on youth nutritional monitor . patient aware of plan of care .
[2022-05-25] MEDS: Lidocaine HCl 4 % MPF 5 ML AMPUL 3 ML INHALE (09:19)
--- NOTE | 2022-05-25 09:30 | PC.NURSE ---
R.T at bedside administering lidocaine nebulizer treatment prior to ng-tube placement . family and patient aware of plan of care .
--- NOTE | 2022-05-25 10:11 | PC.NURSE ---
N-G placed in right nare , place on intermittent wall suctioning . large amount of green bile immediately removed after placement 400 ml .placement verified with xray . patient reports nausea , obtained order for zofran from provider DR. Reed and administered IVP . patient aware of plan of care .
--- NOTE | 2022-05-25 10:42 | P.HPHOSP_ITS ---
History of Present Illness Date of Service: 05/25/22 Attending physician on admission: Jarocho Ram Chief Complaint: Left-sided abdominal pain Pt is a 61-year-old female with a PMH significant for prior SB0, illeus, cholecystectomy, multiple other abdominal surgeries including resection and illeostomy, and HTN who presents to the ED complaining of left-sided abdominal pain x1 day. Pt noted that she had pain yesterday after eating, which progressively worsened throughout the night. She then developed nausea and vomiting. Pt took herself to [facility] ED, but left for [facility] after not being seen for five hours. Pt had a normal small bowel movement this morning and has continued to pass gas. Pt denies F/C. No chest pain/pressure or SOB. In the ED pt treated with morphine, Zofran, Pepcid. CT showed acute SBO of the left lower quadrant possibly secondary to herniation or adhesions. General surgery consulted and thought SBO due to herniation unlikely, suggesting conservative treatment at this time. Pt initially refused NGT due to prior traumatic experiences with placement. Pt given midazolam and NGT finally placed and in good position, producing copious bilious output. Pt will be admitted to the hospital for SBO management. Review of Systems Review of Systems: Left-sided abdominal pain, severe and crampy N/V Denies F/C Yes all other systems are reviewed and are negative [facility] Medical History History of ileus Hypertension Irritable bowel Family History (Updated 05/25/22 @ 11:04 by LAZARO Bishop) Mother HTN (hypertension) SBO (small bowel obstruction) CHF (congestive heart failure) Surgical History H/O ileostomy History of cholecystectomy Social History (Updated 05/25/22 @ 11:04 by LAZARO Bishop) Alcohol intake: current Alcohol intake frequency: a few times a week Alcohol type: wine Patient Tobacco Use Status: Former Tobacco user Smoked in Last 30 Days: No Use of substances other than those prescribed or required for medical reasons: No Advance Directives: No Advance Directives Information Provided: No Patient : No Meds Allergies Allergy/AdvReac Type Severity Reaction Status Date / Time Sulfa (Sulfonamide Allergy Unknown HIVES Verified 05/25/22 03:10 Antibiotics) [SULFA (SULFONAMIDE ANTIBIOTICS)] Active Medications: Current Medications Acetaminophen (Acetaminophen 325 Mg Tablet) 650 mg PO Q6H PRN PRN Reason: Pain, Mild (Pain Scale 1-3) Enoxaparin Sodium (Enoxaparin Sodium 40 Mg/0.4 Ml Syringe) 40 mg SUBCUT Q24H [facility] Dextrose/Sodium Chloride (D51/2ns) 1,000 mls @ 80 mls/hr IVCONT .[id number] [facility] Ondansetron HCl (Ondansetron Hcl 4 Mg/2 Ml Vial) 4 mg IVPUSH Q4H PRN PRN Reason: Nausea and Vomiting Pharmacy Consult (Consult Rx Perform Med Rec) 1 each MISCELLANE ONCE PRN PRN Reason: Consult order Sodium Chloride (0.9 % Sodium Chloride Flush 3 Ml Syringe) 3 ml IVFLUSH QSHIFT [facility] Home Medications Medication Instructions Recorded Confirmed Last Taken Type albuterol sulfate 90 mcg/actuation 1 puff inhalation QID PRN Wheezing 05/25/22 05/25/22 Unknown History aerosol inhaler metoprolol succinate 25 mg 1 tab PO DAILY 05/25/22 05/25/22 Unknown History tablet,extended release 24 hr metoprolol succinate 50 mg 1 tab PO DAILY 05/25/22 05/25/22 Unknown History tablet,extended release 24 hr omeprazole 20 mg capsule,delayed 1 cap PO DAILY 05/25/22 05/25/22 Unknown History release Physical Exam Vital Signs and Narrative: Vital Signs: Last Vital Signs Temp 98.4 F 05/25/22 07:06 Pulse 104 H 05/25/22 09:21 Resp 16 05/25/22 09:21 BP 136/81 05/25/22 07:06 Pulse Ox 96 05/25/22 07:06 O2 Del Method 05/25/22 07:06 BMI result Body Mass Index 35.6 Constitutional: Alert, in no acute distress. Mental Status: Oriented to person, place and time. Eyes: Pupils are equal, round, and reactive to light. Ear, Nose, and Throat: Oropharynx clear, mucous membranes moist. Ears and nose without deformities. Trachea midline. Respiratory: Clear to auscultation bilaterally. No wheezing, rales, or rhonchi. Cardiovascular: S1, S2 regular. No murmurs, rubs, or gallops. Gastrointestinal: Abdomen soft, non-distended with left-sided tenderness. No rebound tenderness. Normal bowel sounds. Neurologic: Cranial nerves II-XI are grossly intact. No focal neurological deficits. Moves all extremities spontaneously. Skin: No rashes of lesions. Musculoskeletal: No cyanosis or clubbing. Extremities: No edema. Psychiatric: Normal mood and affect. Results Labs CBC and Chem 7: 05/25/22 04:26 05/25/22 04:26 Labs: Laboratory Results - last 24 hr 05/25/22 05/25/22 05/25/22 04:26 04:26 04:26 MCV 84.9 MCH 28.9 MCHC 34.0 RDW 13.6 Plt Count 359 MPV 9.0 L Immature Gran % (Auto) 0.3 Neut % (Auto) 82.6 H Lymph % (Auto) 10.8 L [place] % (Auto) 5.8 Eos % (Auto) 0.3 Baso % (Auto) 0.2 Lymph # (Auto) 1.1 L [place] # (Auto) 0.6 Eos # (Auto) 0.0 Baso # (Auto) 0.0 Abs Immat Gran (auto) 0.03 Absolute Neuts (auto) 8.4 H Absolute Nucleated RBC 0.000 Nucleated RBC % (auto) 0.0 Anion Gap 16 Estim Creat Clear Calc 75.3 Estimated GFR > 60 Random Glucose 135 H Lactic Acid Calcium 10.0 Total Bilirubin 1.0 Direct Bilirubin 0.2 AST 22 ALT 62 H Alkaline Phosphatase 95 Troponin I High Sens < 3.5 Total Protein 7.1 Albumin 4.1 Lipase 24 Urine Color Urine Appearance Urine pH Ur Specific [place] Urine Protein Urine Glucose (UA) Urine Ketones Urine Blood Urine Nitrite Ur Leukocyte Esterase Urine RBC Urine WBC Ur Squamous Epith Cells Urine Bacteria Hyaline Casts Influenza Type A (PCR) Influenza Type B (PCR) RSV RNA Qual (PCR) SARS-CoV-2 RNA (RT-PCR) 05/25/22 05/25/22 05/25/22 07:19 08:01 08:07 MCV MCH MCHC RDW Plt Count MPV Immature Gran % (Auto) Neut % (Auto) Lymph % (Auto) [place] % (Auto) Eos % (Auto) Baso % (Auto) Lymph # (Auto) [place] # (Auto) Eos # (Auto) Baso # (Auto) Abs Immat Gran (auto) Absolute Neuts (auto) Absolute Nucleated RBC Nucleated RBC % (auto) Anion Gap Estim Creat Clear Calc Estimated GFR Random Glucose Lactic Acid 0.8 Calcium Total Bilirubin Direct Bilirubin AST ALT Alkaline Phosphatase Troponin I High Sens Total Protein Albumin Lipase Urine Color Dark Yellow Urine Appearance Cloudy Urine pH >= 9.0 Ur Specific [place] 1.025 Urine Protein 30 (1+) H Urine Glucose (UA) Negative Urine Ketones 15 Urine Blood Negative Urine Nitrite Negative Ur Leukocyte Esterase Negative Urine RBC 0-2 Urine WBC 0-5 Ur Squamous Epith Cells 0-2 Urine Bacteria None Seen Hyaline Casts 0-2 Influenza Type A (PCR) NEGATIVE Influenza Type B (PCR) NEGATIVE RSV RNA Qual (PCR) NEGATIVE SARS-CoV-2 RNA (RT-PCR) NEGATIVE Imaging Radiologist's Impressions: Impressions Abdomen/Pelvis CT 05/25/22 05:00 IMPRESSION: *Acute small bowel obstruction. Dilated small bowel predominantly within the left lower quadrant is present. The obstruction may be secondary to small bowel herniating via a left parasagittal anterior abdominal wall hernia (series 3 image 46). Alternatively, the obstruction may be secondary to adhesions. Multiple intestinal anastomotic sutures are present. No free intraperitoneal gas or fluid collections. This critical result was discussed with Jim Hurst MD by telephone at 05/25/2022 5:56 AM and it was ascertained that the content and urgency of the report was understood at the time of direct communication. Chest X-Ray 05/25/22 10:27 IMPRESSION: 1. Nasogastric tube appears in good position. 2. No acute cardiopulmonary process. Assessment and Plan (1) Small bowel obstruction: Status: Acute Plan Pt is a 61-year-old female with a PMH significant for prior SB0, illeus, cholecystectomy, multiple other abdominal surgeries including resection and illeostomy, and HTN who presents to the ED complaining of left-sided abdominal pain x1 day. CT showed acute SBO of the left lower quadrant possibly secondary to herniation or adhesions. Pt will be admitted to the hospital for SBO management. # SBO -- likley secondary to adhesions from multiple previous abdominal surgeries -- NGT in place, copious bilious output -- NPO -- Zofran for nausea -- morphine and dilaudid for pain control -- surgery consult # HTN -- continue home meds # asthma -- continue home meds Full code DVT prophylaxis: Lovenox Attending: Dr. Ram Due to the pt's NGT and treatment for SBO, pt's anticipated hospital stay will be at least two midnights. Quality Stroke Does the patient have a stroke diagnosis?: No VTE Prior VTE?: No VTE Risk Level:: Medical - moderate - high VTE Device Contraindication: Treatment Not Indicated VTE Drug Contraindication: N/A - Med Ordered
[2022-05-25] MEDS: Dextrose 5 % and 0.45 % NaCl 1,000 ML 80 ML IVCONT (11:42)
[2022-05-25] MEDS: Enoxaparin Sodium 40 MG/0.4 ML SYRINGE SUBCUT (12:10)
[2022-05-25] MEDS: HYDROmorphone HCl 0.5 MG/0.5 ML SYRINGE 0.25 MG IVPUSH ×2 (15:23→21:29)
--- NOTE | 2022-05-25 15:29 | PC.NURSE ---
patient reports 7 out of 10 pain level for headache medicated with 0.25mg of diliuded . patient continues on cardiac monitoring . patient removed nose secure devise for n-g tube replaced with tape . patient aware of plan of care .
--- NOTE | 2022-05-25 20:12 | MHC.CM.PN ---
Attempted to meet with admitted patient in OverFlow unit. Room darkened and pt sleeping. Pt has commercial insurance and no IMM is necessary. Will try to me with patient later when she is awake. CM to follow for d/c needs.
[2022-05-26] MEDS: Dextrose 5 % and 0.45 % NaCl 1,000 ML 80 ML IVCONT (00:39)
[2022-05-26] MEDS: Morphine Sulfate 2 MG/ML CARTRIDGE 1 MG IVPUSH (00:39)
[2022-05-26] MEDS: 0.9 % Sodium Chloride Flush 3 ML SYRINGE IVFLUSH (00:41)
[2022-05-26] MEDS: ondansetron HCL 4 MG/2 ML VIAL IVPUSH (00:44)
[2022-05-26 04:00] VITALS: BP 179/89; PULSE 97; RESP 16; TEMP 36; O2SAT 94
[2022-05-26] MEDS: HYDROmorphone HCl 0.5 MG/0.5 ML SYRINGE 0.25 MG IVPUSH (04:25)
--- NOTE | 2022-05-26 07:28 | P.PNGS_ITS ---
Subjective Subjective Date of Service: 05/26/22 Patient reports: feels better, flatus and bowel movement Interval history: The patient continues to deny any significant abdominal pain or emesis around the NG. She does note that the NG is extremely irritating and she is having a right-sided headache. She has had a bowel movement since before the tube was put in and continues to have flatus and is questioning whether not the tube can be removed at this time. In discussion with the nurse, while there is no NG output when I reviewed the numbers at 07:00am, this morning's nurse who is not seen the patient assures me there is only a scant amount of NG drainage per signs, given this I believe it is reasonable to remove the tube. Physical Exam Vital Signs: Vital Signs: Last Vital Signs Temp 96.8 F 05/26/22 04:00 Pulse 97 05/26/22 04:00 Resp 16 05/26/22 04:00 BP 179/89 H 05/26/22 04:00 Pulse Ox 94 05/26/22 04:00 O2 Del Method 05/26/22 04:00 BMI result Body Mass Index 35.6 Patient's abdomen is obese and benign her hernias continue to reduce and have no tenderness. No rebound, rigidity or guarding is noted NC/AT, PERRLA, EOMI Patient is nontoxic Objective Data Active Medications Acetaminophen (Acetaminophen 325 Mg Tablet) 650 mg PO Q6H PRN PRN Reason: Pain, Mild (Pain Scale 1-3) Albuterol Sulfate (Albuterol Sulfate 90 Mcg 8 Gm Inhaler) 1 puff INHALE QID PRN PRN Reason: Wheezing Enoxaparin Sodium (Enoxaparin Sodium 40 Mg/0.4 Ml Syringe) 40 mg SUBCUT Q24H [facility] Last Admin: 05/25/22 12:10 Dose: 40 mg Documented By: OFELIA Hydromorphone HCl (Hydromorphone Hcl 0.5 Mg/0.5 Ml Syringe) 0.25 mg IVPUSH Q4H PRN; Protocol PRN Reason: Pain, Severe (Pain Scale 7-10) Last Admin: 05/26/22 04:25 Dose: 0.25 mg Documented By: CLARICE Dextrose/Sodium Chloride (D51/2ns) 1,000 mls @ 80 mls/hr IVCONT .[id number] [facility] Last Admin: 05/26/22 00:39 Dose: 80 mls/hr Documented By: CLARICE Metoprolol Succinate (Metoprolol Succinate Er 25 Mg Tab.Er.24h) 25 mg PO DAILY [facility]; Protocol Metoprolol Succinate (Metoprolol Succinate Er 50 Mg Tab.Er.24h) 50 mg PO DAILY [facility]; Protocol Morphine Sulfate (Morphine Sulfate 2 Mg/Ml Cartridge) 1 mg IVPUSH Q4H PRN; Protocol PRN Reason: Pain, Moderate (Pain Scale 4-6 Last Admin: 05/26/22 00:39 Dose: 1 mg Documented By: CLARICE Omeprazole (Omeprazole 20 Mg Capsule.Dr) 20 mg PO DAILY@0630 [facility] Ondansetron HCl (Ondansetron Hcl 4 Mg/2 Ml Vial) 4 mg IVPUSH Q4H PRN PRN Reason: Nausea and Vomiting Last Admin: 05/26/22 00:44 Dose: 4 mg Documented By: CLARICE Pharmacy Consult (Consult Rx Perform Med Rec) 1 each MISCELLANE ONCE PRN PRN Reason: Consult order Sodium Chloride (0.9 % Sodium Chloride Flush 3 Ml Syringe) 3 ml IVFLUSH QSHIFT [facility] Last Admin: 05/26/22 00:41 Dose: 3 ml Documented By: CLARICE Labs CBC & Chem 7: 05/25/22 04:26 05/25/22 04:26 Labs: Laboratory Results - last 24 hr 05/25/22 05/25/22 05/25/22 07:19 08:01 08:07 Lactic Acid 0.8 Urine Color Dark Yellow Urine Appearance Cloudy Urine pH >= 9.0 Ur Specific [place] 1.025 Urine Protein 30 (1+) H Urine Glucose (UA) Negative Urine Ketones 15 Urine Blood Negative Urine Nitrite Negative Ur Leukocyte Esterase Negative Urine RBC 0-2 Urine WBC 0-5 Ur Squamous Epith Cells 0-2 Urine Bacteria None Seen Hyaline Casts 0-2 Influenza Type A (PCR) NEGATIVE Influenza Type B (PCR) NEGATIVE RSV RNA Qual (PCR) NEGATIVE SARS-CoV-2 RNA (RT-PCR) NEGATIVE Procedures Date of Service Date of Service: 05/26/22 Progress Note: A&P Assessment and plan (1) Morbid (severe) obesity due to excess calories: Status: Acute (2) History of closure of ileostomy: Status: Acute (3) H/O malignant carcinoid tumor of small intestine: Status: Acute (4) Partial small bowel obstruction: Status: Acute Plan Clinically, the patient never had a complete bowel obstruction since she was continuing to pass gas and have bowel movements. I have ordered that her nasogastric tube be removed and she can be started on clears. She is advised to go slowly and if she is brought of a food items that she does not care for, she is encouraged to avoid it since it can cause nausea. Her diet can be advanced at [facility] if tolerated without abdominal pain or vomiting she can be DC to home later today with follow-up to her surgeons in [place] regarding her colon perforation, ileostomy closure, carcinoid and incisional hernias related. Time Spent With Patient Time: Total time spent is greater than 50% in coordination of care (as documented) at patient's floor/unit and/or counseling patient: Quality Stroke Does the patient have a stroke diagnosis?: No VTE Prior VTE?: No VTE Risk Level:: Medical - moderate - high VTE Device Contraindication: Treatment Not Indicated VTE Drug Contraindication: N/A - Med Ordered
[2022-05-26] MEDS: Metoprolol Succinate ER 25 MG TAB.ER.24H PO (07:45)
[2022-05-26] MEDS: Metoprolol Succinate ER 50 MG TAB.ER.24H PO (07:46)
[2022-05-26] MEDS: Acetaminophen 325 MG TABLET 650 MG PO ×2 (07:46→14:12)
[2022-05-26] MEDS: Omeprazole 20 MG CAPSULE.DR PO (07:46)
[2022-05-26 08:00] VITALS: BP 142/86; PULSE 86; RESP 19; TEMP 36.8; O2SAT 97
[2022-05-26] MEDS: Ondansetron ODT 4 MG TAB.RAPDIS TRANSLINGU (08:32)
[2022-05-26 09:13] LABS: Anion Gap 13 (12-20); Blood Urea Nitrogen 10 mg/dL (9-16); Calcium 8.2 mg/dL (8.4-10.2); Carbon Dioxide 20 mmol/L (22-29); Chloride 109 mmol/L (96-108); Estimated Glomerular Filt Rate > 60; Glucose Random 113 mg/dL (60-115); Potassium 4.2 mmol/L (3.3-5.1); Sodium 138 mmol/L (135-145)
--- NOTE | 2022-05-26 10:02 | P.PNIM_ITS ---
Subjective Subjective Date of Service: 05/26/22 Interval History: cc: abd pain interval history:faltus, small bm, headache Cardiovascular Cardiovascular: Reports no additional cardiovascular complaints Respiratory Respiratory: Reports no additional respiratory complaints Physical Exam Vital Signs: Vital Signs: Last Vital Signs Temp 98.3 F 05/26/22 08:00 Pulse 86 05/26/22 08:00 Resp 19 05/26/22 08:00 BP 142/86 H 05/26/22 08:00 Pulse Ox 97 05/26/22 08:00 O2 Del Method 05/26/22 08:00 BMI result Body Mass Index 35.6 General: AO X 3, no acute distress Resp: CTA bilateral, no accessory muscles used CVS: S1,S2,RRR GI: soft, non tender, non distended Neuro: motor grossly intact, alert Psych: appropriate affect, appropriate insight Objective Data Active Medications Acetaminophen (Acetaminophen 325 Mg Tablet) 650 mg PO Q6H PRN PRN Reason: Pain, Mild (Pain Scale 1-3) Last Admin: 05/26/22 07:46 Dose: 650 mg Documented By: RM Acetaminophen/Butalbital/Caffeine (Butalb/Acetamin/Caff 50/325/40 Tablet) 1 tab PO Q4H PRN PRN Reason: headache Albuterol Sulfate (Albuterol Sulfate 90 Mcg 8 Gm Inhaler) 1 puff INHALE QID PRN PRN Reason: Wheezing Enoxaparin Sodium (Enoxaparin Sodium 40 Mg/0.4 Ml Syringe) 40 mg SUBCUT Q24H [facility] Last Admin: 05/25/22 12:10 Dose: 40 mg Documented By: OFELIA Hydromorphone HCl (Hydromorphone Hcl 0.5 Mg/0.5 Ml Syringe) 0.25 mg IVPUSH Q4H PRN; Protocol PRN Reason: Pain, Severe (Pain Scale 7-10) Last Admin: 05/26/22 04:25 Dose: 0.25 mg Documented By: CLARICE Dextrose/Sodium Chloride (D51/2ns) 1,000 mls @ 80 mls/hr IVCONT .[id number] [facility] Last Admin: 05/26/22 00:39 Dose: 80 mls/hr Documented By: CLARICE Metoprolol Succinate (Metoprolol Succinate Er 25 Mg Tab.Er.24h) 25 mg PO DAILY [facility]; Protocol Last Admin: 05/26/22 07:45 Dose: 25 mg Documented By: RM Metoprolol Succinate (Metoprolol Succinate Er 50 Mg Tab.Er.24h) 50 mg PO DAILY [facility]; Protocol Last Admin: 05/26/22 07:46 Dose: 50 mg Documented By: RM Morphine Sulfate (Morphine Sulfate 2 Mg/Ml Cartridge) 1 mg IVPUSH Q4H PRN; Protocol PRN Reason: Pain, Moderate (Pain Scale 4-6 Last Admin: 05/26/22 00:39 Dose: 1 mg Documented By: CLARICE Omeprazole (Omeprazole 20 Mg Capsule.Dr) 20 mg PO DAILY@0630 [facility] Last Admin: 05/26/22 07:46 Dose: 20 mg Documented By: RM Ondansetron HCl (Ondansetron Hcl 4 Mg/2 Ml Vial) 4 mg IVPUSH Q4H PRN PRN Reason: Nausea and Vomiting Last Admin: 05/26/22 00:44 Dose: 4 mg Ondansetron HCl (Ondansetron Odt 4 Mg Tab.Rapdis) 4 mg TRANSLINGU Q6H PRN PRN Reason: nausea Last Admin: 05/26/22 08:32 Dose: 4 mg Documented By: RM Pharmacy Consult (Consult Rx Perform Med Rec) 1 each MISCELLANE ONCE PRN PRN Reason: Consult order Sodium Chloride (0.9 % Sodium Chloride Flush 3 Ml Syringe) 3 ml IVFLUSH QSHIFT [facility] Last Admin: 05/26/22 09:04 Dose: Not Given Documented By: RM Non-Admin Reason: No Access Labs CBC & Chem 7: 05/25/22 04:26 05/26/22 08:28 Labs: Laboratory Results - last 24 hr 05/26/22 08:28 Anion Gap 13 Estim Creat Clear Calc 83.0 Estimated GFR > 60 Random Glucose 113 Calcium 8.2 L D Assessment and Plan (1) Morbid (severe) obesity due to excess calories: Status: Acute Plan 61-year-old female with a PMH significant for prior SB0, illeus, cholecystectomy, multiple other abdominal surgeries including resection and i lleostomy, and HTN who presented to the ED complaining of left-sided abdominal pain x1 day. CT showed acute SBO SBO likely secondary to adhesions from multiple previous abdominal surgeries now with flatus and small BM ngt removed, advanced to clears surgery following HTN metoprolol mild intermittent asthma stable, prn albuterol Full code DVT prophylaxis: Lovenox reason for continued hospitalization: awaiting return of bowel function Quality Stroke Does the patient have a stroke diagnosis?: No VTE Prior VTE?: No VTE Risk Level:: Medical - moderate - high VTE Device Contraindication: Treatment Not Indicated VTE Drug Contraindication: N/A - Med Ordered
[2022-05-26] MEDS: Enoxaparin Sodium 40 MG/0.4 ML SYRINGE SUBCUT (12:56)
[2022-05-26 15:53] VITALS: BP 135/70; PULSE 80; RESP 17; TEMP 36.5; O2SAT 96
[2022-05-26 20:00] VITALS: BP 137/64; PULSE 76; RESP 18; TEMP 37.2; O2SAT 96
[2022-05-26] MEDS: Butalb/Acetamin/Caff 50/325/40 TABLET 1 TAB PO (20:31)
[2022-05-27 03:29] VITALS: BP 119/59; PULSE 62; RESP 15; TEMP 37; O2SAT 96
[2022-05-27] MEDS: Butalb/Acetamin/Caff 50/325/40 TABLET 1 TAB PO (03:36)
--- NOTE | 2022-05-27 06:21 | PC.NURSE ---
spoke with patient and her family in the room. They were adamant of getting repeat imaging prior to the patient being discharged for peace of mind and to ensure that her SBO has been resolved.
[2022-05-27] MEDS: Omeprazole 20 MG CAPSULE.DR PO (06:24)
[2022-05-27 06:39] LABS: Hematocrit 38.6 % (37.0-47.0); Hemoglobin 12.7 g/dl (12.0-16.0); Mean Corpuscular HGB Conc 32.9 g/dl (31.0-35.0); Mean Corpuscular Hemoglobin 29.3 pg (27.0-33.0); Mean Corpuscular Volume 89.1 fL (80.0-98.0); Mean Platelet Volume 9.8 fL (9.4-12.3); Platelet Count 256 X10*3/uL (160-400); Red Blood Count 4.33 X10*6/uL (4.20-5.50); Red Cell Distribution Width 13.7 % (11.0-16.0); White Blood Count 5.7 X10*3/uL (4.8-10.8)
[2022-05-27 07:18] LABS: Anion Gap 13 (12-20); Blood Urea Nitrogen 9 mg/dL (9-16); Calcium 8.5 mg/dL (8.4-10.2); Carbon Dioxide 24 mmol/L (22-29); Chloride 108 mmol/L (96-108); Creatinine Clr Calc Pharmacy 81.8; Estimated Glomerular Filt Rate > 60; Glucose Fasting 83 mg/dL (60-99); Potassium 4.1 mmol/L (3.3-5.1); Sodium 141 mmol/L (135-145)
[2022-05-27 08:00] VITALS: BP 157/76; PULSE 69; RESP 18; TEMP 36.9; O2SAT 99
[2022-05-27] MEDS: Acetaminophen 325 MG TABLET 650 MG PO (08:34)
[2022-05-27] MEDS: Metoprolol Succinate ER 50 MG TAB.ER.24H PO (08:34)
[2022-05-27] MEDS: Metoprolol Succinate ER 25 MG TAB.ER.24H PO (08:35)
[2022-05-27] MEDS: Azithromycin 500 MG TABLET PO (09:44)
--- NOTE | 2022-05-27 10:55 | P.PNIM_ITS ---
Subjective Subjective Date of Service: 05/27/22 Interval History: cc: abd pain interval history:flatus, small bms, headache Cardiovascular Cardiovascular: Reports no additional cardiovascular complaints Respiratory Respiratory: Reports no additional respiratory complaints Physical Exam Vital Signs: Vital Signs: Last Vital Signs Temp 98.5 F 05/27/22 08:00 Pulse 69 05/27/22 08:00 Resp 18 05/27/22 08:00 BP 157/76 H 05/27/22 08:00 Pulse Ox 99 05/27/22 08:00 O2 Del Method 05/27/22 08:00 BMI result Body Mass Index 35.6 General: AO X 3, no acute distress Resp: CTA bilateral, no accessory muscles used CVS: S1,S2,RRR GI: soft, non tender, non distended Neuro: motor grossly intact, alert Psych: appropriate affect, appropriate insight Objective Data Active Medications Acetaminophen (Acetaminophen 325 Mg Tablet) 650 mg PO Q6H PRN PRN Reason: Pain, Mild (Pain Scale 1-3) Last Admin: 05/27/22 08:34 Dose: 650 mg Documented By: JERI Acetaminophen/Butalbital/Caffeine (Butalb/Acetamin/Caff 50/325/40 Tablet) 1 tab PO Q4H PRN PRN Reason: headache Last Admin: 05/27/22 03:36 Dose: 1 tab Documented By: YOLI Albuterol Sulfate (Albuterol Sulfate 90 Mcg 8 Gm Inhaler) 1 puff INHALE QID PRN PRN Reason: Wheezing Azithromycin (Azithromycin 250 Mg Tablet) 250 mg PO Q24H [facility] Stop: 05/31/22 09:16 Enoxaparin Sodium (Enoxaparin Sodium 40 Mg/0.4 Ml Syringe) 40 mg SUBCUT Q24H [facility] Last Admin: 05/26/22 12:56 Dose: 40 mg Documented By: SOLISRADHA Hydromorphone HCl (Hydromorphone Hcl 0.5 Mg/0.5 Ml Syringe) 0.25 mg IVPUSH Q4H PRN; Protocol PRN Reason: Pain, Severe (Pain Scale 7-10) Last Admin: 05/26/22 04:25 Dose: 0.25 mg Documented By: CLARICE Metoprolol Succinate (Metoprolol Succinate Er 25 Mg Tab.Er.24h) 25 mg PO DAILY [facility]; Protocol Last Admin: 05/27/22 08:35 Dose: 25 mg Documented By: JERI Metoprolol Succinate (Metoprolol Succinate Er 50 Mg Tab.Er.24h) 50 mg PO DAILY [facility]; Protocol Last Admin: 05/27/22 08:34 Dose: 50 mg Documented By: JERI Morphine Sulfate (Morphine Sulfate 2 Mg/Ml Cartridge) 1 mg IVPUSH Q4H PRN; Protocol PRN Reason: Pain, Moderate (Pain Scale 4-6 Last Admin: 05/26/22 00:39 Dose: 1 mg Documented By: CLARICE Omeprazole (Omeprazole 20 Mg Capsule.Dr) 20 mg PO DAILY@0630 [facility] Last Admin: 05/27/22 06:24 Dose: 20 mg Documented By: YOLI Ondansetron HCl (Ondansetron Hcl 4 Mg/2 Ml Vial) 4 mg IVPUSH Q4H PRN PRN Reason: Nausea and Vomiting Last Admin: 05/26/22 00:44 Dose: 4 mg Ondansetron HCl (Ondansetron Odt 4 Mg Tab.Rapdis) 4 mg TRANSLINGU Q6H PRN PRN Reason: nausea Last Admin: 05/26/22 08:32 Dose: 4 mg Documented By: RM Oxymetazoline HCl (Oxymetazoline Hcl 0.05 % Nasal 15 Ml [place]) 2 spray NOSTRIL- B BID PRN PRN Reason: Congestion Stop: 05/30/22 09:01 Pharmacy Consult (Consult Rx Perform Med Rec) 1 each MISCELLANE ONCE PRN PRN Reason: Consult order Sodium Chloride (0.9 % Sodium Chloride Flush 3 Ml Syringe) 3 ml IVFLUSH QSHIFT [facility] Last Admin: 05/27/22 08:35 Dose: Not Given Documented By: JERI Non-Admin Reason: No Access Labs CBC & Chem 7: 05/27/22 05:33 05/27/22 05:33 Labs: Laboratory Results - last 24 hr 05/27/22 05/27/22 05:33 05:33 MCV 89.1 MCH 29.3 MCHC 32.9 RDW 13.7 Plt Count 256 D MPV 9.8 Absolute Nucleated RBC 0.000 Nucleated RBC % (auto) 0.0 Anion Gap 13 Estim Creat Clear Calc 81.8 Estimated GFR > 60 Fasting Glucose 83 Calcium 8.5 Assessment and Plan (1) Morbid (severe) obesity due to excess calories: Status: Acute Plan 61-year-old female with a PMH significant for prior SB0, illeus, cholecystectomy, multiple other abdominal surgeries including resection and illeostomy, and HTN who presented to the ED complaining of left-sided abdominal pain x1 day. CT showed acute SBO SBO likely secondary to adhesions from multiple previous abdominal surgeries now with flatus and small BM ngt removed, advanced to solids surgery following HTN metoprolol mild intermittent asthma stable, prn albuterol Full code DVT prophylaxis: Lovenox reason for continued hospitalization: awaiting return of bowel function Quality Stroke Does the patient have a stroke diagnosis?: No VTE Prior VTE?: No VTE Risk Level:: Medical - moderate - high VTE Device Contraindication: Treatment Not Indicated VTE Drug Contraindication: N/A - Med Ordered
[2022-05-27] MEDS: Enoxaparin Sodium 40 MG/0.4 ML SYRINGE SUBCUT (12:20)
--- NOTE | 2022-05-27 14:10 | MHC.CM.PN ---
PATIENT IS INDEPENDENT WITH ALL ADLS. NO DME OR VNA SERVICES. SHE IS ASSIGNING HER DAUGHTER AND SON HCP AGENTS. COPY WILL BE PLACED IN CHART AND UPLOADED INTO [facility]. COVID VACCINATED X 2 DAUGHTER WILL TRANSPORT HOME AT [place]
--- NOTE | 2022-05-27 14:17 | MHC.CM.PN ---
PLAN IS DIET ADVANCE AND DC MONDAY HOME - SELF CARE
[2022-05-27 16:00] VITALS: BP 160/63; PULSE 73; RESP 20; TEMP 36.6; O2SAT 98
[2022-05-27 19:06] VITALS: BP 110/61; PULSE 73; RESP 20; TEMP 36.9; O2SAT 97
[2022-05-28 03:07] VITALS: BP 116/63; PULSE 71; RESP 18; TEMP 37.2; O2SAT 97
[2022-05-28] MEDS: Omeprazole 20 MG CAPSULE.DR PO (06:04)
[2022-05-28 06:38] LABS: Hematocrit 38.2 % (37.0-47.0); Hemoglobin 12.4 g/dl (12.0-16.0); Mean Corpuscular HGB Conc 32.5 g/dl (31.0-35.0); Mean Corpuscular Hemoglobin 29.2 pg (27.0-33.0); Mean Corpuscular Volume 90.1 fL (80.0-98.0); Mean Platelet Volume 9.8 fL (9.4-12.3); Platelet Count 286 X10*3/uL (160-400); Red Blood Count 4.24 X10*6/uL (4.20-5.50); Red Cell Distribution Width 13.5 % (11.0-16.0); White Blood Count 6.5 X10*3/uL (4.8-10.8)
[2022-05-28 07:02] LABS: Anion Gap 13 (12-20); Blood Urea Nitrogen 8 mg/dL (9-16); Calcium 8.7 mg/dL (8.4-10.2); Carbon Dioxide 26 mmol/L (22-29); Chloride 106 mmol/L (96-108); Creatinine Clr Calc Pharmacy 78.4; Estimated Glomerular Filt Rate > 60; Glucose Fasting 90 mg/dL (60-99); Sodium 141 mmol/L (135-145)
[2022-05-28 08:00] VITALS: BP 139/80; PULSE 75; RESP 18; TEMP 36.8
[2022-05-28] MEDS: Azithromycin 250 MG TABLET PO (09:00)
[2022-05-28] MEDS: Metoprolol Succinate ER 50 MG TAB.ER.24H PO (09:00)
[2022-05-28] MEDS: Metoprolol Succinate ER 25 MG TAB.ER.24H PO (09:00)
--- NOTE | 2022-05-28 09:08 | P.PNGS_ITS ---
Subjective Subjective Date of Service: 05/28/22 Interval history: Patient feels improved and was able to tolerate a soft diet without nausea or vomiting. She is moving her bowels and passing flatus. She is asking about repeating CT scan Physical Exam Vital Signs: Vital Signs: Last Vital Signs Temp 98.3 F 05/28/22 08:00 Pulse 75 05/28/22 08:00 Resp 18 05/28/22 08:00 BP 139/80 05/28/22 08:00 Pulse Ox 97 05/28/22 03:07 O2 Del Method 05/28/22 08:00 BMI result Body Mass Index 35.6 Const: General: comfortable and no acute distress Nutritional Appearance: well nourished Orientation/consciousness: patient oriented x3 Limitations: no limitations Resp: Effort & Inspection: normal respiratory effort GI: Inspection: Yes normal to inspection Palpation (GI): Soft to palpation Skin: General skin exam: no rashes or lesions noted Neuro: General: patient oriented x3 Objective Data Active Medications Acetaminophen (Acetaminophen 325 Mg Tablet) 650 mg PO Q6H PRN PRN Reason: Pain, Mild (Pain Scale 1-3) Last Admin: 05/27/22 08:34 Dose: 650 mg Documented By: JERI Acetaminophen/Butalbital/Caffeine (Butalb/Acetamin/Caff 50/325/40 Tablet) 1 tab PO Q4H PRN PRN Reason: headache Last Admin: 05/27/22 03:36 Dose: 1 tab Documented By: YOLI Albuterol Sulfate (Albuterol Sulfate 90 Mcg 8 Gm Inhaler) 1 puff INHALE QID PRN PRN Reason: Wheezing Azithromycin (Azithromycin 250 Mg Tablet) 250 mg PO Q24H [facility] Stop: 05/31/22 09:16 Last Admin: 05/28/22 09:00 Dose: 250 mg Documented By: JERI Enoxaparin Sodium (Enoxaparin Sodium 40 Mg/0.4 Ml Syringe) 40 mg SUBCUT Q24H [facility] Last Admin: 05/27/22 12:20 Dose: 40 mg Documented By: JERI Hydromorphone HCl (Hydromorphone Hcl 0.5 Mg/0.5 Ml Syringe) 0.25 mg IVPUSH Q4H PRN; Protocol PRN Reason: Pain, Severe (Pain Scale 7-10) Last Admin: 05/26/22 04:25 Dose: 0.25 mg Documented By: CLARICE Metoprolol Succinate (Metoprolol Succinate Er 25 Mg Tab.Er.24h) 25 mg PO DAILY [facility]; Protocol Last Admin: 05/28/22 09:00 Dose: 25 mg Documented By: JERI Metoprolol Succinate (Metoprolol Succinate Er 50 Mg Tab.Er.24h) 50 mg PO DAILY [facility]; Protocol Last Admin: 05/28/22 09:00 Dose: 50 mg Documented By: JERI Morphine Sulfate (Morphine Sulfate 2 Mg/Ml Cartridge) 1 mg IVPUSH Q4H PRN; Protocol PRN Reason: Pain, Moderate (Pain Scale 4-6 Last Admin: 05/26/22 00:39 Dose: 1 mg Documented By: CLARICE Omeprazole (Omeprazole 20 Mg Capsule.Dr) 20 mg PO DAILY@0630 [facility] Last Admin: 05/28/22 06:04 Dose: 20 mg Documented By: BENJI Ondansetron HCl (Ondansetron Hcl 4 Mg/2 Ml Vial) 4 mg IVPUSH Q4H PRN PRN Reason: Nausea and Vomiting Last Admin: 05/26/22 00:44 Dose: 4 mg Ondansetron HCl (Ondansetron Odt 4 Mg Tab.Rapdis) 4 mg TRANSLINGU Q6H PRN PRN Reason: nausea Last Admin: 05/26/22 08:32 Dose: 4 mg Documented By: RM Oxymetazoline HCl (Oxymetazoline Hcl 0.05 % Nasal 15 Ml [place]) 2 spray NOSTRIL- B BID PRN PRN Reason: Congestion Stop: 05/30/22 09:01 Pharmacy Consult (Consult Rx Perform Med Rec) 1 each MISCELLANE ONCE PRN PRN Reason: Consult order Sodium Chloride (0.9 % Sodium Chloride Flush 3 Ml Syringe) 3 ml IVFLUSH [facility] Last Admin: 05/28/22 09:05 Dose: Not Given Documented By: JERI Non-Admin Reason: No Access Labs CBC & Chem 7: 05/28/22 05:36 05/28/22 05:36 Labs: Laboratory Results - last 24 hr 05/28/22 05/28/22 05:36 05:36 MCV 90.1 MCH 29.2 MCHC 32.5 RDW 13.5 Plt Count 286 MPV 9.8 Absolute Nucleated RBC 0.000 Nucleated RBC % (auto) 0.0 Anion Gap 13 Estim Creat Clear Calc 78.4 Estimated GFR > 60 Fasting Glucose 90 Calcium 8.7 Procedures Date of Service Date of Service: 05/28/22 Progress Note: A&P Assessment and plan (1) History of closure of ileostomy: Status: Acute (2) H/O malignant carcinoid tumor of small intestine: Status: Acute (3) Partial small bowel obstruction: Status: Acute Plan 61-year-old female patient with history of carcinoid tumor of the small bowel and mesentery, s/p resection at [facility] and [place], s/p sigmoid resection with ileostomy for diverticulitis at [facility], complicated by wound dehiscence, s/p closure of ileostomy, now with recent small-bowel partial obstruction. NG tube removed and patient is tolerating a regular diet (soft) without further nausea, vomiting, or abdominal pain. Her exam today is benign. She is due to follow-up with her physicians in [place] for carcinoid follow-up and is due to have a CT later this week. I recommended holding off on any further CT prior to discharge as she is tolerating a regular diet and will be having CT later this week anyways. I did recommend that she maintain a soft diet, avoiding raw vegetables with thick skin for the next several weeks. She expressed understanding and agrees with the plan. Time Spent With Patient Time: Total time managing care of this patient today ____ minutes. Quality Stroke Does the patient have a stroke diagnosis?: No VTE Prior VTE?: No VTE Risk Level:: Medical - moderate - high VTE Device Contraindication: Treatment Not Indicated VTE Drug Contraindication: N/A - Med Ordered
--- NOTE | 2022-05-28 10:31 | HO.PM.IMPN ---
Subjective Subjective Date of Service: 05/28/22 Interval History: cc: abd pain interval history:much improved today Cardiovascular Cardiovascular: Reports no additional cardiovascular complaints Respiratory Respiratory: Reports no additional respiratory complaints Physical Exam Vital Signs: Vital Signs: Last Vital Signs Temp 98.3 F 05/28/22 08:00 Pulse 75 05/28/22 08:00 Resp 18 05/28/22 08:00 BP 139/80 05/28/22 08:00 Pulse Ox 97 05/28/22 03:07 O2 Del Method 05/28/22 08:00 BMI result Body Mass Index 35.6 General: AO X 3, no acute distress Resp: CTA bilateral, no accessory muscles used CVS: S1,S2,RRR GI: soft, non tender, non distended Neuro: motor grossly intact, alert Psych: appropriate affect, appropriate insight Objective Data Active Medications Acetaminophen (Acetaminophen 325 Mg Tablet) 650 mg PO Q6H PRN PRN Reason: Pain, Mild (Pain Scale 1-3) Last Admin: 05/27/22 08:34 Dose: 650 mg Documented By: JERI Acetaminophen/Butalbital/Caffeine (Butalb/Acetamin/Caff 50/325/40 Tablet) 1 tab PO Q4H PRN PRN Reason: headache Last Admin: 05/27/22 03:36 Dose: 1 tab Documented By: YOLI Albuterol Sulfate (Albuterol Sulfate 90 Mcg 8 Gm Inhaler) 1 puff INHALE QID PRN PRN Reason: Wheezing Azithromycin (Azithromycin 250 Mg Tablet) 250 mg PO Q24H [facility] Stop: 05/31/22 09:16 Last Admin: 05/28/22 09:00 Dose: 250 mg Documented By: JERI Enoxaparin Sodium (Enoxaparin Sodium 40 Mg/0.4 Ml Syringe) 40 mg SUBCUT Q24H CECY Last Admin: 05/27/22 12:20 Dose: 40 mg Documented By: JERI Hydromorphone HCl (Hydromorphone Hcl 0.5 Mg/0.5 Ml Syringe) 0.25 mg IVPUSH Q4H PRN; Protocol PRN Reason: Pain, Severe (Pain Scale 7-10) Last Admin: 05/26/22 04:25 Dose: 0.25 mg Documented By: CLARICE Metoprolol Succinate (Metoprolol Succinate Er 25 Mg Tab.Er.24h) 25 mg PO DAILY [facility]; Protocol Last Admin: 05/28/22 09:00 Dose: 25 mg Documented By: JERI Metoprolol Succinate (Metoprolol Succinate Er 50 Mg Tab.Er.24h) 50 mg PO DAILY [facility]; Protocol Last Admin: 05/28/22 09:00 Dose: 50 mg Documented By: JERI Morphine Sulfate (Morphine Sulfate 2 Mg/Ml Cartridge) 1 mg IVPUSH Q4H PRN; Protocol PRN Reason: Pain, Moderate (Pain Scale 4-6 Last Admin: 05/26/22 00:39 Dose: 1 mg Documented By: CLARICE Omeprazole (Omeprazole 20 Mg Capsule.Dr) 20 mg PO DAILY@0630 [facility] Last Admin: 05/28/22 06:04 Dose: 20 mg Documented By: BENJI Ondansetron HCl (Ondansetron Hcl 4 Mg/2 Ml Vial) 4 mg IVPUSH Q4H PRN PRN Reason: Nausea and Vomiting Last Admin: 05/26/22 00:44 Dose: 4 mg Ondansetron HCl (Ondansetron Odt 4 Mg Tab.Rapdis) 4 mg TRANSLINGU Q6H PRN PRN Reason: nausea Last Admin: 05/26/22 08:32 Dose: 4 mg Documented By: RM Oxymetazoline HCl (Oxymetazoline Hcl 0.05 % Nasal 15 Ml [place]) 2 spray NOSTRIL-B BID PRN PRN Reason: Congestion Stop: 05/30/22 09:01 Pharmacy Consult (Consult Rx Perform Med Rec) 1 each MISCELLANE ONCE PRN PRN Reason: Consult order Sodium Chloride (0.9 % Sodium Chloride Flush 3 Ml Syringe) 3 ml IVFLUSH QSHIFT [facility] Last Admin: 05/28/22 09:05 Dose: Not Given Documented By: JERI Non-Admin Reason: No Access Labs CBC & Chem 7: 05/28/22 05:36 05/28/22 05:36 Labs: Laboratory Results - last 24 hr 05/28/22 05/28/22 05:36 05:36 MCV 90.1 MCH 29.2 MCHC 32.5 RDW 13.5 Plt Count 286 MPV 9.8 Absolute Nucleated RBC 0.000 Nucleated RBC % (auto) 0.0 Anion Gap 13 Estim Creat Clear Calc 78.4 Estimated GFR > 60 Fasting Glucose 90 Calcium 8.7 Assessment and Plan (1) Morbid (severe) obesity due to excess calories: Status: Acute Plan 61-year-old female with a PMH significant for prior SB0, illeus, cholecystectomy, multiple other abdominal surgeries including resection and illeostomy, and HTN who presented to the ED complaining of left-sided abdominal pain x1 day. CT showed acute SBO SBO likely secondary to adhesions from multiple previous abdominal surgeries resolved ngt removed, advanced to solids surgery following HTN metoprolol mild intermittent asthma stable, prn albuterol Full code DVT prophylaxis: Lovenox reason for continued hospitalization: confirming return of bowel function Time Spent With Patient Time: Total time managing care of this patient today ____ minutes. Quality Stroke Does the patient have a stroke diagnosis?: No VTE Prior VTE?: No VTE Risk Level:: Medical - moderate - high VTE Device Contraindication: Treatment Not Indicated VTE Drug Contraindication: N/A - Med Ordered
--- NOTE | 2022-05-28 10:36 | P.DS_ITS ---
DS: Providers Provider Date of Service: 05/28/22 Date of admission: 05/25/22 10:22 Primary care physician: Malinda Chatman MD Consults: 05/25/22 07:10 Consult to General Surgery Stat Consulting Provider: Guillermo Reynolds Reason for consultation: sbo Has provider been notified: Yes 05/25/22 07:50 Consult to General Surgery Stat Consulting Provider: Guillermo Reynolds Reason for consultation: Small-bowel obstruction Has provider been notified: Yes 05/25/22 10:42 Consult to General Surgery Routine Consulting Provider: Tray Lewis Reason for consultation: SBO Has provider been notified: No DS: Diagnosis Discharge Diagnosis (1) Morbid (severe) obesity due to excess calories: Status: Acute DS: Summary Hospital Course Hospital Course: from initial hpi: Chief Complaint: Left-sided abdominal pain Pt is a 61-year-old female with a PMH significant for prior SB0, illeus, cholecystectomy, multiple other abdominal surgeries including resection and illeostomy, and HTN who presents to the ED complaining of left-sided abdominal pain x1 day. Pt noted that she had pain yesterday after eating, which progressively worsened throughout the night. She then developed nausea and vomiting. Pt took herself to [facility] ED, but left for [place] after not being seen for five hours. Pt had a normal small bowel movement this morning and has continued to pass gas. Pt denies F/C. No chest pain/pressure or SOB. In the ED pt treated with morphine, Zofran, Pepcid. CT showed acute SBO of the left lower quadrant possibly secondary to herniation or adhesions. General surgery consulted and thought SBO due to herniation unlikely, suggesting conservative treatment at this time. Pt initially refused NGT due to prior traumatic experiences with placement. Pt given midazolam and NGT finally placed and in good position, producing copious bilious output. Pt will be admitted to the hospital for SBO management. hospital course: patient was admitted for small-bowel obstruction, she was treated with IV fluids, NG tube. obstruction resolved spontaneously, patient had successful bowel movements, diet was advanced to solids. Patient was also treated for sinusitis with Zpak. She was seen by surgery recommended staying on soft diet without raw vegetables or skins. for hypertension she was continued on metoprolol. For mild intermittent asthma she was stable and has p.r.n. albuterol. Patient is feeling better will be discharged home. Time Spent with Patient Time attestation: Total time managing care of this patient today ____ minutes. Discharge coordination time: Greater than 30 minutes Quality: Safe Use of Opioids Does Pt have an Active Cancer Diagnosis on the Problem List?: No Quality: Stroke Does the patient have a stroke diagnosis?: No Physical Exam Vital Signs: Vital Signs: Last Vital Signs Temp 98.3 F 05/28/22 08:00 Pulse 75 05/28/22 08:00 Resp 18 05/28/22 08:00 BP 139/80 05/28/22 08:00 Pulse Ox 97 05/28/22 03:07 O2 Del Method 05/28/22 08:00 BMI result Body Mass Index 35.6 General: AO X 3, no acute distress Resp: CTA bilateral, no accessory muscles used CVS: S1,S2,RRR GI: soft, non tender, non distended Neuro: motor grossly intact, alert Psych: appropriate affect, appropriate insight DS: Data Data Completed and Pending Labs on day of discharge: Laboratory Results - last 24 hr 05/28/22 05/28/22 05:36 05:36 WBC 6.5 RBC 4.24 Hgb 12.4 Hct 38.2 MCV 90.1 MCH 29.2 MCHC 32.5 RDW 13.5 Plt Count 286 MPV 9.8 Absolute Nucleated RBC 0.000 Nucleated RBC % (auto) 0.0 Sodium 141 Potassium 4.0 Chloride 106 Carbon Dioxide 26 Anion Gap 13 BUN 8 L Creatinine 0.73 Estim Creat Clear Calc 78.4 Estimated GFR > 60 Fasting Glucose 90 Calcium 8.7 Discharge Plan Discharge Anticipated Discharge Date/Time: 05/28/22 10:32 Patient Disposition: Home, Self-Care Discharge Diagnosis: sbo Referrals: Malinda Chatman MD [Primary Care Provider] - 1 Week Discharge Medications: New azithromycin 250 mg Tablet 250 mg PO Q24H Qty: 3 0RF Continued metoprolol succinate 50 mg tablet extended release 24 hr 1 tab PO DAILY omeprazole 20 mg capsule,delayed release(DR/EC) 1 cap PO DAILY metoprolol succinate 25 mg tablet extended release 24 hr 1 tab PO DAILY albuterol sulfate 90 mcg/actuation Hfa Aerosol Inhaler 1 puff INHALATION QID PRN (Reason: Wheezing) Diet: see below Activity on Discharge: As tolerated Stand Alone Forms: Patient Portal Discharge page Care Plan Goals: recovery Health Concerns: recurrent SBO Plan of Treatment: 3 more days of zpak, soft diet, avoiding raw vegetables with thick skin for the next several weeks Assessment: see above
--- NOTE | 2022-05-28 14:04 | MHC.CM.PN ---
DP: PT IS MEDICALLY CLEARED FOR DC HOME, NO SERVICES. RN AWARE. FAMILY WILL TRANSPORT HOME.
== END 2022-05-28 14:09 | disposition home or self-care (01) | DRG 395 ==
LOC: HO.ED 07:38 → HO.EDOVER 10:43 → HO.S3 19:50
PROVIDERS: Emergency Medicine; Surgery; Admitting Provider Student in an Organized Health Care Education/Training Program; Emergency Provider Emergency Medicine Emergency Medical Services; PCP Family Medicine; Visit Provider Internal Medicine
DX: K66.0 Peritoneal adhesions (postprocedural) (postinfection) (principal); E66.01 Morbid (severe) obesity due to excess calories; J45.20 Mild intermittent asthma, uncomplicated; Z68.35 Body mass index [BMI] 35.0-35.9, adult; Z20.822 Contact with and (suspected) exposure to COVID-19; Z98.0 Intestinal bypass and anastomosis status; Z87.891 Personal history of nicotine dependence; Z85.068 Personal history of other malignant neoplasm of small intestine; Z88.2 Allergy status to sulfonamides; Z79.899 Other long term (current) drug therapy
CPT/HCPCS: 0241U; 36415; 71045; 74176; 80048; 80076; 81001; 83605; 83690; 84484; 85025; 85027; 93005; 94640; 99285; J1170; J1650; J2250; J2270; J2405